=== PATIENT | male | born 1940 | race Caucasian/White ===

== ENCOUNTER 2016-11-22 08:25 | Outpatient (CLI) | payer MEDICARE ==
[2016-11-22 12:23] LABS: #Basophils 0.1 thou/uL (0.0-0.2); #Eosinphils 0.3 thou/uL (0.0-0.7); #Lymphocytes 2.8 thou/uL (1.20-3.40); #Monocytes 0.7 thou/uL (0.11-0.59); #Neutrophils 3.9 thou/uL (1.40-6.50); %Basophils 0.9 % (0.0-1.0); %Eosinophils 4.3 % (0.0-10.0); %Lymphocytes 35.9 % (21.0-51.0); %Monocytes 8.6 % (0.0-10.0); Hematocrit 41.7 % (42.0-52.0); Red Blood Cell (RBC) Count 4.45 mill/uL (4.70-6.10); White Blood Cell (WBC) Count 7.7 thou/uL (4.8-10.8)
[2016-11-22 12:39] LABS: Hemoglobin A1c 6.5 % (4.0-6.0)
[2016-11-22 12:49] LABS: ALT (SGPT) 16 U/L (0-55); AST (SGOT) 17 U/L (5-34); Alkaline Phosphatase 48 U/L (40-150); Anion Gap 15 mmol/L (10-20); BUN (Urea Nitrogen) 27 mg/dL (8.4-25.7); Bilirubin, Total 0.4 mg/dL (0.2-1.2); Calc. Creatinine Clearance 0 mL/min (70-130); Calcium 10.4 mg/dL (7.8-10.44); Carbon Dioxide 20 mmol/L (23-31); Chloride 109 mmol/L (98-107); Estimated GFR-MDRD 44; Globulin 2.7 g/dL (2.4-3.5); LDL Cholesterol, Calculated 141 mg/dL
[2016-11-22 19:39] LABS: Microalbumin Urine Less than 1.0 mg/dL (0.5-50.0)
== END 2016-11-22 08:26 ==
LOC: NAVSJIPCSP 08:25
PROVIDERS: ATTEND Internal Medicine
DX: Z12.5 Encounter for screening for malignant neoplasm of prostate (principal); E11.9 Type 2 diabetes mellitus without complications; Z79.899 Other long term (current) drug therapy
CPT/HCPCS: 36415; 80053; 80061; 82043; 82570; 83036; 84443; 85025; G0103

== ENCOUNTER 2017-05-09 09:23 | Outpatient (CLI) | payer MEDICARE ==
[2017-05-09 12:07] LABS: Hemoglobin A1c 6.6 % (4.0-6.0)
[2017-05-09 12:43] LABS: ALT (SGPT) 23 U/L (8-55); AST (SGOT) 22 U/L (5-34); Albumin 4.2 g/dL (3.4-4.8); Alkaline Phosphatase 46 U/L (40-150); Anion Gap 19 mmol/L (10-20); BUN (Urea Nitrogen) 24 mg/dL (8.4-25.7); Bilirubin, Total 0.6 mg/dL (0.2-1.2); Calc. Creatinine Clearance 0 mL/min (70-130); Calcium 9.7 mg/dL (7.8-10.44); Carbon Dioxide 22 mmol/L (23-31); Cardiac Risk 4.2 (Less than 4.5); Chloride 104 mmol/L (98-107); Cholesterol 191 mg/dl (< 200 Desired); Estimated GFR-MDRD 50; Globulin 2.6 g/dL (2.4-3.5); Glucose 135 mg/dL (83-110); HDL Cholesterol 45 mg/dL (>60 Neg Risk); LDL Cholesterol, Calculated 114 mg/dL; Potassium 4.5 mmol/L (3.5-5.1); Protein, Total 6.8 g/dL (5.8-8.1); Sodium 140 mmol/L (136-145); Triglycerides 159 mg/dL (Less than 150)
[2017-05-09 18:24] LABS: Creatinine, Urine 143.93 mg/dL (63-166); Microalbumin Urine Less than 1.0 mg/dL (0.5-50.0); Microalbumin/Creat Ratio 6.9 mg/g (Less than 30)
== END 2017-05-09 09:24 | disposition home or self-care (01) ==
LOC: NAVSJIPCSP 09:23
PROVIDERS: ATTEND Internal Medicine
DX: E78.5 Hyperlipidemia, unspecified (principal); E11.9 Type 2 diabetes mellitus without complications; N18.3 Chronic kidney disease, stage 3 (moderate); Z98.62 Peripheral vascular angioplasty status
CPT/HCPCS: 36415; 80053; 80061; 82043; 83036

== ENCOUNTER 2019-04-25 19:55 | Emergency (ER) | payer MEDICARE | END 2019-04-25 20:27 | disposition home or self-care (01) | LOC: NAV ERS 19:55 | DX: T60.91XA Toxic effect of unspecified pesticide, accidental (unintentional), initial encounter (principal); L25.3 Unspecified contact dermatitis due to other chemical products; I25.10 Atherosclerotic heart disease of native coronary artery without angina pectoris; E78.5 Hyperlipidemia, unspecified; Z79.899 Other long term (current) drug therapy | CPT/HCPCS: 99282 ==

== ENCOUNTER 2019-08-19 13:39 | Outpatient (CLI) | payer MEDICARE ==
--- NOTE | 2019-08-19 14:42 | RAD ---
CERVICAL SPINE 3 VIEWS: Date: 08/19/19 COMPARISON: None. HISTORY: Cervical region somatic dysfunction. FINDINGS: Anterior diskectomy and fusion hardware present at C5-6/C6-7. No evidence for hardware failure. Multilevel bilateral facet and uncovertebral osteophyte formation, left greater than right, most sign ificant at C3-4, C4-5, and C5-6. Open-mouth odontoid view demonstrates a normal appearing dens and C1-2 articulation. IMPRESSION: Postoperative and degenerative change within the cervical spine as above. POS: [facility]
== END 2019-08-19 13:40 | disposition home or self-care (01) ==
LOC: NAV RAD 13:39
PROVIDERS: ATTEND Internal Medicine
DX: M99.01 Segmental and somatic dysfunction of cervical region (principal); M47.812 Spondylosis without myelopathy or radiculopathy, cervical region; Z98.890 Other specified postprocedural states
CPT/HCPCS: 72040

== ENCOUNTER 2022-07-26 16:28 | Emergency (ER) | payer MEDICARE ==
[2022-07-26] MEDS ORDERED: Morphine 4 MG/ML VIAL ONE (17:05)
[2022-07-26] MEDS ORDERED: Ondansetron PF 4 MG/2 ML Vial ONE (17:06)
[2022-07-26] MEDS ORDERED: Ketorolac Tromethamine 30 MG/ML VIAL ONE (17:06)
[2022-07-26 17:10] LABS: Bilirubin Negative (Negative); Blood, Urine Negative (Negative); Clarity Clear (Clear); Glucose, Urine (Dipstick) 100 mg/dL (Negative); Ketone, Urine Negative (Negative); Leukocyte Negative (Negative); Nitrite Negative (Negative); Protein, Urine (Dipstick) Negative (Neg-Trace); Urobilinogen 0.2 mg/dL (Less than 2); pH, Urine 6.5 (5.0-9.0)
[2022-07-26 17:21] LABS: #Basophils 0.1 thou/uL (0.0-0.2); #Eosinphils 0.5 thou/uL (0.0-0.7); #Monocytes 0.6 thou/uL (0.11-0.59); #Neutrophils 5.6 thou/uL (1.40-6.50); %Eosinophils 6.9 % (0.0-10.0); %Lymphocytes 12.8 % (21.0-51.0); %Monocytes 7.4 % (0.0-10.0); %Neutrophils 71.9 % (42.0-75.0); Hemoglobin 12.5 g/dL (14.0-18.0); Mean Corpuscular HGB CONC 31.7 g/dL (32.0-36.0); Mean Corpuscular Hemoglobin 29.7 pg (27.0-31.0); Mean Corpuscular Volume 93.6 fL (78.0-98.0); Mean Platelet Volume 9.5 fL (7.4-10.4); Platelet Count 229 thou/uL (130-400); White Blood Cell (WBC) Count 7.7 thou/uL (4.8-10.8)
[2022-07-26 17:38] LABS: ALT (SGPT) 20 U/L (8-55); AST (SGOT) 29 U/L (5-34); Albumin 4.4 g/dL (3.4-4.8); Alkaline Phosphatase 43 U/L (40-110); Anion Gap 18 mmol/L (10-20); BUN (Urea Nitrogen) 14 mg/dL (8.4-25.7); Bilirubin, Total 0.6 mg/dL (0.2-1.2); Calc. Creatinine Clearance 0 mL/min (70-130); Calcium 9.2 mg/dL (7.8-10.44); Carbon Dioxide 23 mmol/L (23-31); Chloride 101 mmol/L (98-107); Estimated GFR 51; Globulin 2.8 g/dL (2.4-3.5); Glucose 188 mg/dL (83-110); Lipase 25 U/L (8-78); Potassium 3.8 mmol/L (3.5-5.1); Protein, Total 7.2 g/dL (5.8-8.1); Sodium 138 mmol/L (136-145)
== END 2022-07-26 18:33 | disposition home or self-care (01) ==
LOC: NAV ERS 16:28
DX: M51.26 Other intervertebral disc displacement, lumbar region (principal); E78.00 Pure hypercholesterolemia, unspecified; E11.22 Type 2 diabetes mellitus with diabetic chronic kidney disease; I12.9 Hypertensive chronic kidney disease with stage 1 through stage 4 chronic kidney disease, or unspecified chronic kidney disease; N18.9 Chronic kidney disease, unspecified
CPT/HCPCS: 74176; 80053; 81003; 83690; 85025; 96374; 96375; J1885; J2270; J2405

== ENCOUNTER 2023-02-27 09:20 | Inpatient (IN) | payer MEDICARE ==
[2023-02-27] MEDS ORDERED: Bisacodyl 10 MG SUPP PR PRN (12:30)
[2023-02-27] MEDS ORDERED: Senokot S 8.6-50 MG TAB PO PRN (12:30)
[2023-02-27] MEDS ORDERED: Calcium Carbonate 500 MG ChewTAB PO PRN (12:30)
[2023-02-27] MEDS ORDERED: Sodium Chloride 0.65% Nasal 44 ML BOT EA NARE PRN (12:30)
[2023-02-27] MEDS ORDERED: Benzonatate 100 MG CAP PO PRN (12:30)
[2023-02-27] MEDS ORDERED: Guaifenesin DM 100-10/5 ML UDCUP PO PRN (12:30)
[2023-02-27] MEDS ORDERED: Artificial Tear Sol 15 ML BOT EA EYE PRN (12:30)
[2023-02-27] MEDS ORDERED: Bisacodyl 5 MG TAB PO PRN (12:30)
[2023-02-27] MEDS ORDERED: Acetaminophen 325 MG TAB PO PRN (12:30)
[2023-02-27] MEDS ORDERED: Acetaminophen 650 MG Suppository PR PRN (12:30)
[2023-02-27] MEDS ORDERED: Cepastat Lozenges 1 LOZ PO PRN (12:30)
[2023-02-27] MEDS ORDERED: Dextrose 50% Abboject 50 ML SYRINGE SLOW IVP PRN (12:30)
[2023-02-27] MEDS: HumaLOG 300 UNITS/3 ML VIAL SC PRN (18:55)
[2023-02-27] MEDS: HYDROcodone/Acetaminophen 5/325 mg Tablet PO PRN (18:57)
[2023-02-27] MEDS: rOPINIRole HCl 1 MG TAB PO SCH (20:50)
[2023-02-27] MEDS: Gabapentin 300 MG CAP PO SCH (20:51)
[2023-02-27] MEDS: tiZANidine HCl 4 MG TAB PO PRN (20:51)
[2023-02-27] MEDS: Atorvastatin Calcium 40 MG TAB PO SCH (20:52)
[2023-02-28] MEDS: HYDROcodone/Acetaminophen 5/325 mg Tablet PO PRN (05:26)
[2023-02-28] MEDS: HumaLOG 300 UNITS/3 ML VIAL SC PRN ×4 (05:29→21:09)
[2023-02-28 08:50] LABS: #Eosinphils 0.3 thou/uL (0.0-0.7); #Lymphocytes 0.9 thou/uL (1.20-3.40); #Monocytes 0.7 thou/uL (0.11-0.59); #Neutrophils 6.2 thou/uL (1.40-6.50); %Basophils 0.4 % (0.0-1.0); %Eosinophils 4.1 % (0.0-10.0); %Lymphocytes 11.3 % (21.0-51.0); %Monocytes 8.3 % (0.0-10.0); %Neutrophils 75.9 % (42.0-75.0); Hemoglobin 10.3 g/dL (14.0-18.0); Mean Corpuscular HGB CONC 32.4 g/dL (32.0-36.0); Mean Corpuscular Hemoglobin 28.9 pg (27.0-31.0); Mean Corpuscular Volume 89.1 fl (78.0-98.0); Mean Platelet Volume 9.2 fL (7.4-10.4); Platelet Count 168 10x3/uL (130-400); Red Blood Cell (RBC) Count 3.55 mill/uL (4.70-6.10); White Blood Cell (WBC) Count 8.1 10x3/uL (4.8-10.8)
[2023-02-28] MEDS: Alogliptin 25 MG TAB PO SCH (09:06)
[2023-02-28] MEDS: metFORMIN 500 MG TAB PO SCH ×2 (09:06→17:12)
[2023-02-28] MEDS: rOPINIRole HCl 1 MG TAB PO SCH ×3 (09:07→20:51)
[2023-02-28] MEDS: Pioglitazone HCl 15 MG TAB PO SCH (09:07)
[2023-02-28] MEDS: Gabapentin 300 MG CAP PO SCH ×3 (09:08→20:51)
[2023-02-28] MEDS: Lisinopril 5 MG TAB PO SCH (09:08)
[2023-02-28 09:12] LABS: AST (SGOT) 15 U/L (5-34); Anion Gap 14 mmol/L (10-20); Calcium 8.8 mg/dL (7.8-10.44); Carbon Dioxide 21 mmol/L (23-31); Chloride 107 mmol/L (98-107); Potassium 4.1 mmol/L (3.5-5.1); Sodium 138 mmol/L (136-145)
[2023-02-28 09:31] LABS: ALT (SGPT) 6 U/L (8-55); Albumin 3.5 g/dL (3.4-4.8); Alkaline Phosphatase 41 U/L (40-110); BUN (Urea Nitrogen) 20 mg/dL (8.4-25.7); Calc. Creatinine Clearance 77 mL/min (70-130); Estimated GFR 67; Globulin 2.7 g/dL (2.4-3.5); Glucose 298 mg/dL (83-110); Protein, Total 6.2 g/dL (5.8-8.1)
[2023-02-28] MEDS: Atorvastatin Calcium 40 MG TAB PO SCH (20:51)
[2023-03-01] MEDS: HumaLOG 300 UNITS/3 ML VIAL SC PRN ×4 (06:17→20:23)
[2023-03-01] MEDS: Alogliptin 25 MG TAB PO SCH (09:31)
[2023-03-01] MEDS: Pioglitazone HCl 15 MG TAB PO SCH (09:31)
[2023-03-01] MEDS: Gabapentin 300 MG CAP PO SCH ×3 (09:32→20:20)
[2023-03-01] MEDS: metFORMIN 500 MG TAB PO SCH ×2 (09:32→15:56)
[2023-03-01] MEDS: Lisinopril 5 MG TAB PO SCH (09:32)
[2023-03-01] MEDS: rOPINIRole HCl 1 MG TAB PO SCH ×3 (12:43→20:20)
[2023-03-01] MEDS: HYDROcodone/Acetaminophen 5/325 mg Tablet PO PRN ×2 (14:25→20:30)
[2023-03-01] MEDS: Atorvastatin Calcium 40 MG TAB PO SCH (20:20)
[2023-03-01] MEDS: SAW PALMETTO 450 MG PO SCH (21:31)
[2023-03-02] MEDS: HumaLOG 300 UNITS/3 ML VIAL SC PRN ×4 (05:20→20:26)
[2023-03-02] MEDS: Lisinopril 5 MG TAB PO SCH (07:59)
[2023-03-02] MEDS: Pioglitazone HCl 15 MG TAB PO SCH (08:00)
[2023-03-02] MEDS: Alogliptin 25 MG TAB PO SCH (08:00)
[2023-03-02] MEDS: metFORMIN 500 MG TAB PO SCH ×2 (08:00→16:17)
[2023-03-02] MEDS: rOPINIRole HCl 1 MG TAB PO SCH ×3 (08:01→20:22)
[2023-03-02] MEDS: Gabapentin 300 MG CAP PO SCH ×3 (08:01→20:22)
[2023-03-02] MEDS: Lantus 1000 UNITS/10 ML VIAL SC SCH (08:03)
[2023-03-02] MEDS: SAW PALMETTO 450 MG PO SCH ×2 (08:04→20:25)
[2023-03-02 08:52] LABS: #Basophils 0.1 thou/uL (0.0-0.2); #Eosinphils 0.8 thou/uL (0.0-0.7); #Lymphocytes 0.7 thou/uL (1.20-3.40); #Monocytes 0.6 thou/uL (0.11-0.59); #Neutrophils 5.4 thou/uL (1.40-6.50); %Basophils 1.3 % (0.0-1.0); %Eosinophils 10.3 % (0.0-10.0); %Lymphocytes 9.1 % (21.0-51.0); %Monocytes 7.8 % (0.0-10.0); %Neutrophils 71.5 % (42.0-75.0); Hemoglobin 10.3 g/dL (14.0-18.0); Mean Corpuscular HGB CONC 31.1 g/dL (32.0-36.0); Mean Corpuscular Hemoglobin 28.3 pg (27.0-31.0); Mean Corpuscular Volume 90.9 fl (78.0-98.0); Mean Platelet Volume 8.6 fL (7.4-10.4); Platelet Count 252 10x3/uL (130-400); RBC Distribution Width 13.6 % (11.5-14.5); Red Blood Cell (RBC) Count 3.64 mill/uL (4.70-6.10); White Blood Cell (WBC) Count 7.6 10x3/uL (4.8-10.8)
[2023-03-02 09:42] LABS: Anion Gap 15 mmol/L (10-20); BUN (Urea Nitrogen) 19 mg/dL (8.4-25.7); Calc. Creatinine Clearance 69 mL/min (70-130); Calcium 9.1 mg/dL (7.8-10.44); Carbon Dioxide 23 mmol/L (23-31); Chloride 100 mmol/L (98-107); Estimated GFR 59; Glucose 267 mg/dL (83-110); Potassium 4.4 mmol/L (3.5-5.1); Sodium 134 mmol/L (136-145)
[2023-03-02] MEDS: HYDROcodone/Acetaminophen 5/325 mg Tablet PO PRN ×2 (12:14→20:23)
[2023-03-02] MEDS: Atorvastatin Calcium 40 MG TAB PO SCH (20:22)
[2023-03-03] MEDS: HumaLOG 300 UNITS/3 ML VIAL SC PRN ×4 (05:12→20:39)
[2023-03-03] MEDS: Pioglitazone HCl 15 MG TAB PO SCH (08:26)
[2023-03-03] MEDS: Gabapentin 300 MG CAP PO SCH ×3 (08:26→20:35)
[2023-03-03] MEDS: rOPINIRole HCl 1 MG TAB PO SCH ×3 (08:26→20:34)
[2023-03-03] MEDS: metFORMIN 500 MG TAB PO SCH ×2 (08:27→16:54)
[2023-03-03] MEDS: Lisinopril 5 MG TAB PO SCH (08:27)
[2023-03-03] MEDS: Alogliptin 25 MG TAB PO SCH (08:27)
[2023-03-03] MEDS: SAW PALMETTO 450 MG PO SCH ×2 (08:28→20:35)
[2023-03-03] MEDS: Lantus 1000 UNITS/10 ML VIAL SC SCH (08:28)
[2023-03-03] MEDS: HYDROcodone/Acetaminophen 5/325 mg Tablet PO PRN ×3 (09:57→18:12)
[2023-03-03] MEDS ORDERED: Sodium Chloride 0.9% 500 ML IV PRN (19:57)
[2023-03-03] MEDS: Atorvastatin Calcium 40 MG TAB PO SCH (20:35)
[2023-03-04] MEDS: HumaLOG 300 UNITS/3 ML VIAL SC PRN ×4 (05:25→20:12)
[2023-03-04] MEDS: rOPINIRole HCl 1 MG TAB PO SCH ×3 (07:31→20:09)
[2023-03-04] MEDS: Pioglitazone HCl 15 MG TAB PO SCH ×2 (07:31→07:34)
[2023-03-04] MEDS: HYDROcodone/Acetaminophen 5/325 mg Tablet PO PRN ×3 (07:32→18:16)
[2023-03-04] MEDS: Lisinopril 5 MG TAB PO SCH (07:32)
[2023-03-04] MEDS: Gabapentin 300 MG CAP PO SCH ×3 (07:33→20:10)
[2023-03-04] MEDS: metFORMIN 500 MG TAB PO SCH ×2 (07:33→16:46)
[2023-03-04] MEDS: Alogliptin 25 MG TAB PO SCH (07:34)
[2023-03-04] MEDS ORDERED: Diclofenac 1% 100 GM GEL TP PRN (07:58)
[2023-03-04] MEDS ORDERED: Lantus 1000 UNITS/10 ML VIAL SC SCH (09:00)
[2023-03-04] MEDS: tiZANidine HCl 4 MG TAB PO PRN (20:09)
[2023-03-04] MEDS: Atorvastatin Calcium 40 MG TAB PO SCH (20:10)
[2023-03-05 02:41] VITALS: BMI 32.3
[2023-03-05] MEDS: HYDROcodone/Acetaminophen 5/325 mg Tablet PO PRN ×3 (03:45→20:30)
[2023-03-05] MEDS: HumaLOG 300 UNITS/3 ML VIAL SC PRN ×3 (05:58→16:55)
[2023-03-05] MEDS ORDERED: HumaLOG 300 UNITS/3 ML VIAL SC PRN (09:04)
[2023-03-05] MEDS: Lisinopril 5 MG TAB PO SCH (09:09)
[2023-03-05] MEDS: Aspirin 81 mg Enteric Coated Tablet PO SCH (09:09)
[2023-03-05] MEDS: rOPINIRole HCl 1 MG TAB PO SCH ×3 (09:10→20:32)
[2023-03-05] MEDS: Pioglitazone HCl 15 MG TAB PO SCH ×2 (09:10→09:15)
[2023-03-05] MEDS: Gabapentin 300 MG CAP PO SCH ×3 (09:11→20:32)
[2023-03-05] MEDS: Alogliptin 25 MG TAB PO SCH (09:11)
[2023-03-05] MEDS: metFORMIN 500 MG TAB PO SCH ×2 (09:11→16:55)
[2023-03-05] MEDS: Lantus 1000 UNITS/10 ML VIAL SC SCH (09:13)
[2023-03-05] MEDS: tiZANidine HCl 4 MG TAB PO PRN ×2 (11:24→20:30)
[2023-03-05] MEDS: Atorvastatin Calcium 40 MG TAB PO SCH (20:32)
[2023-03-06] MEDS: tiZANidine HCl 4 MG TAB PO PRN ×2 (05:05→11:38)
[2023-03-06] MEDS: HumaLOG 300 UNITS/3 ML VIAL SC PRN ×2 (05:11→11:08)
[2023-03-06] MEDS: Pioglitazone HCl 15 MG TAB PO SCH (07:43)
[2023-03-06] MEDS: metFORMIN 500 MG TAB PO SCH ×2 (07:43→16:03)
[2023-03-06] MEDS: Gabapentin 300 MG CAP PO SCH ×3 (07:44→20:25)
[2023-03-06] MEDS: Alogliptin 25 MG TAB PO SCH (07:44)
[2023-03-06] MEDS: Aspirin 81 mg Enteric Coated Tablet PO SCH (07:44)
[2023-03-06] MEDS: Lantus 1000 UNITS/10 ML VIAL SC SCH (07:46)
[2023-03-06] MEDS: Lisinopril 5 MG TAB PO SCH (07:50)
[2023-03-06] MEDS: HYDROcodone/Acetaminophen 5/325 mg Tablet PO PRN ×2 (08:31→20:26)
[2023-03-06 09:47] LABS: Anion Gap 16 mmol/L (10-20); BUN (Urea Nitrogen) 27 mg/dL (8.4-25.7); Calc. Creatinine Clearance 65 mL/min (70-130); Calcium 9.5 mg/dL (7.8-10.44); Carbon Dioxide 24 mmol/L (23-31); Chloride 102 mmol/L (98-107); Estimated GFR 55; Glucose 237 mg/dL (83-110); Potassium 4.9 mmol/L (3.5-5.1); Sodium 137 mmol/L (136-145)
[2023-03-06] MEDS: rOPINIRole HCl 1 MG TAB PO SCH ×3 (09:59→20:25)
[2023-03-06 11:43] LABS: #Basophils 0.1 thou/uL (0.0-0.2); #Eosinphils 0.5 thou/uL (0.0-0.7); #Lymphocytes 1.1 thou/uL (1.20-3.40); #Monocytes 0.5 thou/uL (0.11-0.59); #Neutrophils 5.9 thou/uL (1.40-6.50); %Eosinophils 5.9 % (0.0-10.0); %Lymphocytes 13.9 % (21.0-51.0); %Neutrophils 73.2 % (42.0-75.0); Hemoglobin 9.7 g/dL (14.0-18.0); Mean Corpuscular Hemoglobin 28.4 pg (27.0-31.0); Mean Corpuscular Volume 91.8 fl (78.0-98.0); Platelet Count 307 10x3/uL (130-400); Red Blood Cell (RBC) Count 3.41 mill/uL (4.70-6.10); White Blood Cell (WBC) Count 8.1 10x3/uL (4.8-10.8)
[2023-03-06 20:07] VITALS: TEMP 97.6
[2023-03-06] MEDS: Atorvastatin Calcium 40 MG TAB PO SCH (20:25)
[2023-03-07] MEDS: HumaLOG 300 UNITS/3 ML VIAL SC PRN ×2 (05:33→11:13)
[2023-03-07] MEDS: HYDROcodone/Acetaminophen 5/325 mg Tablet PO PRN ×2 (06:33→11:54)
[2023-03-07] MEDS: Aspirin 81 mg Enteric Coated Tablet PO SCH (08:01)
[2023-03-07] MEDS: Gabapentin 300 MG CAP PO SCH (08:01)
[2023-03-07] MEDS: metFORMIN 500 MG TAB PO SCH (08:01)
[2023-03-07] MEDS: rOPINIRole HCl 1 MG TAB PO SCH (08:01)
[2023-03-07] MEDS: Alogliptin 25 MG TAB PO SCH (08:01)
[2023-03-07] MEDS: Pioglitazone HCl 15 MG TAB PO SCH ×2 (08:01→09:10)
[2023-03-07] MEDS: Lisinopril 5 MG TAB PO SCH (08:17)
[2023-03-07] MEDS: Lantus 1000 UNITS/10 ML VIAL SC SCH (09:08)
[2023-03-07 12:55] VITALS: BP 123/59
== END 2023-03-07 14:45 | disposition home health service (06) | DRG 948 ==
LOC: NAV ACUTE 17:58
PROVIDERS: ADMIT Family Medicine; ATTEND Family Medicine
DX: R53.1 Weakness (principal); R53.81 Other malaise; I25.10 Atherosclerotic heart disease of native coronary artery without angina pectoris; E11.65 Type 2 diabetes mellitus with hyperglycemia; E78.2 Mixed hyperlipidemia; D50.8 Other iron deficiency anemias; Z79.899 Other long term (current) drug therapy; Z79.84 Long term (current) use of oral hypoglycemic drugs; Z79.4 Long term (current) use of insulin; Z95.5 Presence of coronary angioplasty implant and graft; Z87.11 Personal history of peptic ulcer disease; Z98.49 Cataract extraction status, unspecified eye; Z87.891 Personal history of nicotine dependence; Z98.1 Arthrodesis status; I12.9 Hypertensive chronic kidney disease with stage 1 through stage 4 chronic kidney disease, or unspecified chronic kidney disease; E11.22 Type 2 diabetes mellitus with diabetic chronic kidney disease; N18.9 Chronic kidney disease, unspecified
CPT/HCPCS: 36416; 80048; 80053; 85025; 36415-59; J1815

== ENCOUNTER 2023-08-13 10:54 | Emergency (ER) | payer MEDICARE ==
[2023-08-13] MEDS ORDERED: HYDROcodone/Acetaminophen 5/325 mg Tablet ONE (11:31)
== END 2023-08-13 12:32 | disposition home or self-care (01) ==
LOC: NAV ERS 10:54
DX: S20.212A Contusion of left front wall of thorax, initial encounter (principal); S40.012A Contusion of left shoulder, initial encounter; M25.532 Pain in left wrist; E78.00 Pure hypercholesterolemia, unspecified; I12.9 Hypertensive chronic kidney disease with stage 1 through stage 4 chronic kidney disease, or unspecified chronic kidney disease; N18.9 Chronic kidney disease, unspecified; E11.22 Type 2 diabetes mellitus with diabetic chronic kidney disease; Z79.84 Long term (current) use of oral hypoglycemic drugs; Z79.82 Long term (current) use of aspirin; W19.XXXA Unspecified fall, initial encounter
CPT/HCPCS: 70450; 93005; 94799

== ENCOUNTER 2024-09-22 13:22 | Emergency (ER) | payer MEDICARE, OTHER ==
[2024-09-22] MEDS ORDERED: Bacitracin 1 PK ONE (13:40)
[2024-09-22] MEDS ORDERED: Lidocaine 1% (PF) 30 ML VIAL ONE (13:40)
[2024-09-22] MEDS ORDERED: Boostrix 0.5 ML (Tdap) VIAL (>/=7 yrs of age) ONE (13:47)
[2024-09-22] MEDS ORDERED: traMADol HCl 50 MG TAB ONE (13:56)
[2024-09-22] MEDS ORDERED: Sulfameth/Trimethoprim DS 800-160mg TAB ONE (14:23)
== END 2024-09-22 14:35 | disposition home or self-care (01) ==
LOC: NAV ERS 13:22
DX: S61.213A Laceration without foreign body of left middle finger without damage to nail, initial encounter (principal); I12.9 Hypertensive chronic kidney disease with stage 1 through stage 4 chronic kidney disease, or unspecified chronic kidney disease; E11.22 Type 2 diabetes mellitus with diabetic chronic kidney disease; N18.9 Chronic kidney disease, unspecified; I25.10 Atherosclerotic heart disease of native coronary artery without angina pectoris; K21.9 Gastro-esophageal reflux disease without esophagitis; E78.00 Pure hypercholesterolemia, unspecified; Z87.891 Personal history of nicotine dependence; Z23 Encounter for immunization; Z79.82 Long term (current) use of aspirin; Z79.899 Other long term (current) drug therapy; Z79.84 Long term (current) use of oral hypoglycemic drugs; W31.2XXA Contact with powered woodworking and forming machines, initial encounter; Y92.009 Unspecified place in unspecified non-institutional (private) residence as the place of occurrence of the external cause
CPT/HCPCS: 12031; 90471; 90715

== ENCOUNTER 2025-06-05 13:46 | Outpatient (CLI) | payer MEDICARE | END 2025-06-05 13:47 | disposition home or self-care (01) | LOC: NAV RAD 13:46 | PROVIDERS: ATTEND Family Medicine | DX: M79.661 Pain in right lower leg (principal) ==